=== PATIENT | female | born 1980 | race Caucasian/White ===

== ENCOUNTER 2021-03-07 10:52 | Emergency (ER) | payer OTHER, SELFPAY ==
[~2021-03-07] VITALS: Ht 170.2 cm; Wt 81.6 kg
[2021-03-07 11:11] VITALS: BP 119/64
--- NOTE | 2021-03-07 12:05 | NUR ---
NOVEL SWAB COLLECTED AND SENT TO LAB.
[2021-03-07] MEDS ORDERED: PROM118S5 PO (12:06)
--- NOTE | 2021-03-07 12:15 | NUR ---
Patient discharged with v/s stable. Written and verbal after care instructions given and explained. Patient alert, oriented and verbalized understanding of instructions. Ambulatory with steady gait. All questions addressed prior to discharge. ID band removed. Patient advised to follow up with PMD. Rx of Promethazine given. Patient educated on indication of medication including possible reaction and side effects. Opportunity to ask questions provided and answered.
== END 2021-03-07 12:15 | disposition home or self-care (01) ==
LOC: MED 10:52
DX: B34.9 Viral infection, unspecified (principal); Z20.822 Contact with and (suspected) exposure to COVID-19; F17.290 Nicotine dependence, other tobacco product, uncomplicated; Z79.899 Other long term (current) drug therapy; Z71.6 Tobacco abuse counseling
CPT/HCPCS: 99283; U0003

== ENCOUNTER 2021-09-04 12:23 | Emergency (ER) | payer OTHER, SELFPAY ==
[~2021-09-04] VITALS: Ht 165.1 cm; Wt 79.4 kg
[~2021-09-04 12:23] MED LIST: PROM118S5 PO
[2021-09-04 12:26] VITALS: BP 137/80
--- NOTE | 2021-09-04 12:47 | NUR ---
[facility] EVALUATING PT
[2021-09-04] MEDS ORDERED: cefTRIAXone 1,000 MG in LIDOCAINE MPF 1% 2.1 ML IM ONE (12:55)
[2021-09-04] MEDS ORDERED: ONDANSETRON 4 MG ODT PO ONE (12:55)
[2021-09-04] MEDS ORDERED: HYDROcodone/APAP 7.5/325 MG 1 TAB PO ONE (12:55)
[2021-09-04] MEDS ORDERED: cefTRIAXone 1,000 MG VIAL ONE (12:56)
[2021-09-04] MEDS ORDERED: LIDOCAINE MPF 1% 5 ML ONE (12:57)
[2021-09-04] MEDS ORDERED: IBUP-2213 PO (13:34)
[2021-09-04] MEDS ORDERED: ACET-8386 PO (13:34)
[2021-09-04] MEDS ORDERED: AMOX-1000 PO (13:34)
[2021-09-04 13:41] VITALS: BP 137/80
--- NOTE | 2021-09-04 13:42 | NUR ---
Patient discharged with v/s stable. Written and verbal after care instructions given and explained. Patient alert, oriented and verbalized understanding of instructions. Ambulatory with steady gait. All questions addressed prior to discharge. ID band removed. Patient advised to follow up with PMD. Rx of AUGMENTIN, HYDROCODONE/ACETAMINOPHEN, IBUPROFEN given. Patient educated on indication of medication including possible reaction and side effects. Opportunity to ask questions provided and answered.
== END 2021-09-04 13:41 | disposition home or self-care (01) ==
LOC: MED 12:23
DX: K04.7 Periapical abscess without sinus (principal)
CPT/HCPCS: 96372; 99283; J0696; J2001; Q0162

== ENCOUNTER 2022-05-01 18:43 | Emergency (ER) | payer OTHER ==
[~2022-05-01] VITALS: Ht 172.7 cm; Wt 83.0 kg
[~2022-05-01 18:43] MED LIST changes: +ACET-8386 PO; +AMOX-1000 PO; +IBUP-2213 PO
[2022-05-01 18:53] VITALS: BP 118/68
--- NOTE | 2022-05-01 19:20 | NUR ---
FRONT LOBBY STATED THAT PT WANTED TO TAKE OFF
--- NOTE | 2022-05-01 20:30 | NUR ---
PATIENT LEFT WITHOUT BEING SEEN BY MICHELLE MYERS. NO FURTHER CARE PROVIDED FOR PATIENT.
== END 2022-05-01 20:30 | disposition left against medical advice (07) ==
LOC: MED 18:43
DX: S41.152A Open bite of left upper arm, initial encounter (principal); Z53.21 Procedure and treatment not carried out due to patient leaving prior to being seen by health care provider; W54.0XXA Bitten by dog, initial encounter; Y93.89 Activity, other specified; Y92.89 Other specified places as the place of occurrence of the external cause; Y99.8 Other external cause status